=== PATIENT | female | born 1975 | race Caucasian/White ===

== ENCOUNTER 2018-05-28 21:56 | Emergency (ER) | payer SELFPAY ==
[~2018-05-28] VITALS: Ht 157.5 cm; Wt 98.9 kg
[2018-05-28 21:59] VITALS: BP 135/75
== END 2018-05-29 01:47 | disposition home or self-care (01) ==
LOC: ER 22:07
DX: M54.12 Radiculopathy, cervical region (principal); R25.2 Cramp and spasm
CPT/HCPCS: A4606; Z7610